=== PATIENT | male | born 1955 ===

== ENCOUNTER 2022-10-11 08:30 | Inpatient (IN) | payer OTHER ==
[~2022-10-11] VITALS: Ht 180.3 cm; Wt 104.3 kg
[2022-10-11] MEDS ORDERED: CRESTOR40 MG PO (10:45)
[2022-10-16] MEDS ORDERED: TAMSULOSIN HCL0.4 MG (07:59)
[2022-10-18] MEDS ORDERED: DUI500 PO (15:55)
[2022-10-18] MEDS ORDERED: ELIQUIS2.5 MG PO (15:55)
[2022-10-18] MEDS ORDERED: PERCOCET 5-3251 EACH PO (15:55)
== END 2022-10-18 17:45 | DRG 470 ==
LOC: SURG 10-16 05:30 → O/R 10-16 05:30 → SURH 10-16 07:00 → SURG 10-16 10:04
PROVIDERS: ADMIT Orthopaedic Surgery; ATTEND Orthopaedic Surgery
PROC: 0SRD0J9 Replacement of Left Knee Joint with Synthetic Substitute, Cemented, Open Approach (ICD-10-PCS; principal; 2022-10-16 07:00)
DX: M17.12 Unilateral primary osteoarthritis, left knee (principal); D62 Acute posthemorrhagic anemia; M22.12 Recurrent subluxation of patella, left knee; Z96.652 Presence of left artificial knee joint; Z20.822 Contact with and (suspected) exposure to COVID-19

== ENCOUNTER → 2022-10-23 | Emergency (ER) | payer OTHER ==
[~2022-10-23] VITALS: Ht 172.7 cm; Wt 85.3 kg
[~2022-10-23] MED LIST: CRESTOR40 MG PO; DUI500 PO; ELIQUIS2.5 MG PO; PERCOCET 5-3251 EACH PO; TAMSULOSIN HCL0.4 MG
== END | disposition home or self-care (01) ==
LOC: ER 08:20
DX: R60.0 Localized edema (principal); Z96.652 Presence of left artificial knee joint; E78.00 Pure hypercholesterolemia, unspecified; I87.2 Venous insufficiency (chronic) (peripheral)